=== PATIENT | female | born 1965 | race Caucasian/White ===

== ENCOUNTER 2022-04-13 21:55 | Emergency (ER) | payer SELFPAY ==
[2022-04-13] MEDS ORDERED: MORPHINE 4 MG/ML SYR ONE (22:30)
[2022-04-13] MEDS ORDERED: FAMOTIDINE 20 MG/2 ML VIAL IV ONE (22:30)
[2022-04-13] MEDS ORDERED: ONDANSETRON 4 MG/2 ML VIAL ONE (22:30)
[2022-04-13] MEDS ORDERED: NA CHLORIDE 0.9% 1,000 ML ONE (22:30)
[2022-04-13 23:08] LABS: Absolute Lymphocytes (CBC) 0.6 K/uL (0.7-4.9); Lymphocytes % 12.9 % (15.3-44.8); MCV 81.8 fL (80-100); MPV 9.4 fL (7.6-11.3); RBC Red Blood Cell Count 5.86 M/uL (3.86-4.86)
[2022-04-13 23:26] LABS: Albumin 3.4 g/dL (3.4-5.0); Bilirubin Total 0.9 mg/dL (0.2-1.0); Potassium 3.7 mmol/L (3.5-5.1); Protein, Total 6.8 g/dL (6.4-8.2)
[2022-04-14 00:25] LABS: Urine Blood Negative (Negative); Urine Glucose Negative (Negative); Urine Protein 1+ (Negative); Urine pH 7.5 (5.0-7.0)
[2022-04-14 00:39] LABS: Urine RBC <5 /HPF (None Seen)
--- NOTE | 2022-04-14 01:30 | ER ---
Nurse's Notes [facility] Name: Marycarmen Benz Age: 56 yrs Sex: Female : 1965 Arrival Date: 04/13/2022 Time: 22:03 Bed 6 Private MD: Diagnosis: Abdominal pain, Generalized;Nausea with vomiting, unspecified;Essential (primary) hypertension Presentation: 04/13 22:35 Chief complaint: Patient states: "Abdominal pain, headaches, fatigue.". Coronavirus tw5 screen: Vaccine status: Patient reports receiving the 1st dose of the Covid vaccine. Moderna. Ebola Screen: Patient negative for fever greater than or equal to 101.5 degrees Fahrenheit, and additional compatible Ebola Virus Disease symptoms Patient denies exposure to infectious person. Patient denies travel to an Ebola-affected area in the 21 days before illness onset. Initial Sepsis Screen: Does the patient meet any 2 criteria? No. Patient's initial sepsis screen is negative. Does the patient have a suspected source of infection? No. Patient's initial sepsis screen is negative. Risk Assessment: Do you want to hurt yourself or someone else? Patient reports no desire to harm self or others. Onset of symptoms was April 12, 2022 at 12:00. 22:35 Method Of Arrival: Ambulatory tw5 22:35 Acuity: LILY 3 tw5 Triage Assessment: 22:37 General: Appears uncomfortable, Behavior is appropriate for age, agitated. Pain: Pain tw5 currently is 8 out of 10 on a pain scale. GI: Reports lower abdominal pain, upper abdominal pain. Historical: - Allergies: 22:37 No Known Allergies; tw5 - Home Meds: 22:37 tramadol 50 mg Oral tab 1 tab every 4 hours [Active]; tw5 - PMHx: 22:37 Hypertensive disorder; Diabetes mellitus; PCOS; Hypothyroidism; tw5 - PSHx: 22:37 section; foot surgery-right; Total abdominal hysterectomy; Lumpectomy of tw5 breast; - Immunization history:: Flu vaccine is not up to date. Patient has never been vaccinated. - Social history:: Smoking status: Patient denies any tobacco usage or history of. Screenin:39 Abuse screen: Denies threats or abuse. Denies injuries from another. Nutritional tw5 screening: No deficits noted. Tuberculosis screening: No symptoms or risk factors identified. Fall Risk None identified. Assessment: 22:39 General: Appears uncomfortable, Behavior is appropriate for age, agitated. Neuro: No tw5 deficits noted. GI: Abdomen is tender to palpation X 4 quads. 04/14 00:00 Reassessment: Patient appears in no apparent distress at this time. Patient and/or jb4 family updated on plan of care and expected duration. Pain level reassessed. Patient is alert, oriented x 3, equal unlabored respirations, skin warm/dry/pink. Patient states feeling better. Patient states symptoms have improved. 01:00 Reassessment: Patient appears in no apparent distress at this time. Patient and/or jb4 family updated on plan of care and expected duration. Pain level reassessed. Patient is alert, oriented x 3, equal unlabored respirations, skin warm/dry/pink. 01:45 Reassessment: Patient appears in no apparent distress at this time. Patient and/or jb4 family updated on plan of care and expected duration. Pain level reassessed. Patient is alert, oriented x 3, equal unlabored respirations, skin warm/dry/pink. Vital Signs: 04/13 22:35 BP 150 / 56; Pulse 95; Resp 18; Temp 98.5; Pulse Ox 100% on R/A; Weight 90.72 kg; tw5 Height 5 ft. 9 in. (175.26 cm); Pain 8/10; 04/14 00:00 BP 152 / 58; Pulse 86; Resp 16; Pulse Ox 100% on R/A; jb4 04/13 22:35 Body Mass Index 29.53 (90.72 kg, 175.26 cm) tw5 ED Course: 04/13 22:03 Patient arrived in ED. ag3 22:05 [facility]. kb 22:05 Jose Coronel DO is Attending Physician. kb 22:29 Jumana Limon is Primary Nurse. tw5 22:37 Triage completed. tw5 22:37 Arm band placed on. tw5 22:39 Placed in gown. Bed in low position. Call light in reach. Side rails up X 1. Pulse ox tw5 on. NIBP on. Door closed. Noise minimized. Lights dimmed. Warm blanket given. Verbal reassurance given. 22:39 Initial lab(s) drawn, by me, sent to lab. Inserted saline lock: 18 gauge in right tw5 antecubital area, using aseptic technique. Blood collected. Started by Henok ANDERSON. 22:40 CBC with Diff Sent. :40 CMP Sent. tw11 17:40 Lipase Sent. tw5 04/14 00:13 CT Abd/Pelvis - IV Contrast Only In Process Unspecified. EDMS 01:30 No provider procedures requiring assistance completed. IV discontinued, intact, jb4 bleeding controlled, No redness/swelling at site. Pressure dressing applied. Administered Medications: 04/13 22:40 Drug: Zofran (Ondansetron) 4 mg Route: IVP; Site: right antecubital; tw5 23:10 Follow up: Response: No adverse reaction; Marked relief of symptoms; Nausea is decreasedjb4 22:41 Drug: NS 0.9% 1000 ml Route: IV; Rate: 1 bolus; Site: right antecubital; tw5 04/14 00:00 Follow up: Response: No adverse reaction; IV Status: Completed infusion; IV Intake: jb4 1000ml 04/13 22:41 Drug: Pepcid (famotidine) 20 mg Route: IVP; Site: right antecubital; tw5 23:10 Follow up: Response: No adverse reaction; Marked relief of symptoms jb4 22:41 Drug: morphine 4 mg Route: IVP; Infused Over: 4 mins; Site: right antecubital; tw5 23:15 Follow up: Response: No adverse reaction; Marked relief of symptoms; Pain is decreased; jb4 RASS: Alert and Calm (0) Medication: 22:39 VIS not applicable for this client. tw5 Intake: 04/14 00:00 IV: 1000ml; Total: 1000ml. jb4 Outcome: 01:29 Discharge ordered by . ms3 01:45 Discharged to home ambulatory, with family. jb4 01:45 Condition: stable 01:45 Discharge instructions given to patient, Instructed on discharge instructions, follow up and referral plans. medication usage, Demonstrated understanding of instructions, follow-up care, medications, Prescriptions given X 1. 02:14 Patient left the ED. bb Signatures: Dispatcher [employer] EDMO Cherry Rivera, URVASHI NEWTON-Natalie Bennett RN RN bb Taurus Larson RN RN jb4 Samra Santos3 Jose Coronel, DO ms3 Kyler Limonfany tw5 Corrections: (The following items were deleted from the chart) 02:20 02:00 Reassessment: Patient appears in no apparent distress at this time. Patient jb4 and/or family updated on plan of care and expected duration. Pain level reassessed. Patient is alert, oriented x 3, equal unlabored respirations, skin warm/dry/pink. jb4
--- NOTE | 2022-04-14 01:30 | EDPHYS ---
Physician Documentation [facility] Name: Marycarmen Benz Age: 56 yrs Sex: Female : 1965 Arrival Date: 04/13/2022 Time: 22:03 Bed 6 Private MD: ED Physician Jose Coronel HPI: 04/13 22:25 This 56 yrs old Female presents to ER via Unassigned with complaints of Abdominal Pain. ms3 22:25 56-year-old female with past medical history of diabetes, hypertension, hypothyroidism, ms3 PCOS, fibromyalgia presents for abdominal pain that began yesterday. Patient describes the pain is generalized, rated an 8/10, and described as cramping. Patient denies alleviating or inciting factors. Patient endorses chills, fatigue, nausea, vomiting. Patient denies fevers or diarrhea. Patient denies sick contacts.. Historical: - Allergies: 22:37 No Known Allergies; tw5 - Home Meds: 22:37 tramadol 50 mg Oral tab 1 tab every 4 hours [Active]; tw5 - PMHx: 22:37 Hypertensive disorder; Diabetes mellitus; PCOS; Hypothyroidism; tw5 - PSHx: 22:37 section; foot surgery-right; Total abdominal hysterectomy; Lumpectomy of tw5 breast; - Immunization history:: Flu vaccine is not up to date. Patient has never been vaccinated. - Social history:: Smoking status: Patient denies any tobacco usage or history of. ROS: 22:25 Neck: Negative for injury, pain, and swelling, Cardiovascular: Negative for chest pain, ms3 and palpitations. Respiratory: Negative for shortness of breath, cough, wheezing, and pleuritic chest pain. 22:25 Skin: Negative for injury, rash, and discoloration. 22:25 Constitutional: Positive for chills, Negative for fever. 22:25 Abdomen/GI: Positive for abdominal pain, nausea and vomiting, Negative for diarrhea. 22:25 All other systems are negative. Exam: 22:25 Constitutional: This is a well developed, well nourished patient who is awake, alert, ms3 and in no acute distress. Head/Face: Normocephalic, atraumatic. Neck: Trachea midline, no cervical lymphadenopathy. Supple, full range of motion without nuchal rigidity, or vertebral point tenderness. No Meningismus. Chest/axilla: Normal chest wall appearance and motion. Nontender with no deformity. Cardiovascular: Regular rate and rhythm with a normal S1 and S2. No gallops, murmurs, or rubs. Normal PMI, no JVD. No pulse deficits. Respiratory: Lungs have equal breath sounds bilaterally, clear to auscultation and percussion. No rales, rhonchi or wheezes noted. No increased work of breathing, no retractions or nasal flaring. 22:25 Back: No spinal tenderness. No costovertebral tenderness. Full range of motion. Skin: Warm, dry with normal turgor. Normal color with no rashes, no lesions, and no evidence of cellulitis. MS/ Extremity: Pulses equal, no cyanosis. Neurovascular intact. Full, normal range of motion. 22:25 Abdomen/GI: Inspection: abdomen appears normal, Bowel sounds: normal, Palpation: moderate abdominal tenderness, in all quadrants. Vital Signs: 22:35 BP 150 / 56; Pulse 95; Resp 18; Temp 98.5; Pulse Ox 100% on R/A; Weight 90.72 kg; tw5 Height 5 ft. 9 in. (175.26 cm); Pain 8/10; 04/14 00:00 BP 152 / 58; Pulse 86; Resp 16; Pulse Ox 100% on R/A; jb4 04/13 22:35 Body Mass Index 29.53 (90.72 kg, 175.26 cm) tw5 MDM: 04/13 22:06 Patient medically screened. kb 22:25 Differential diagnosis: bowel obstruction, non-specific abd pain, pancreatitis. ms3 04/14 01:31 Data reviewed: vital signs, nurses notes, lab test result(s), radiologic studies, and ms3 as a result, I will discharge patient. Counseling: I had a detailed discussion with the patient and/or guardian regarding: the historical points, exam findings, and any diagnostic results supporting the discharge/admit diagnosis, lab results, radiology results, the need for outpatient follow up, to return to the emergency department if symptoms worsen or persist or if there are any questions or concerns that arise at home. Special discussion: Based on the patient's Hx, exam, and Dx evaluation, there is no indication for emergent surgery or inpatient Tx. It is understood by the patient/guardian that if the Sx's persist or worsen they need to return immediately for re-evaluation. ED course: Discussed labs, imaging, physical exam findings with patient and her . Patient has improved since arrival to the emergency department. Patient is alert and oriented x4, in no apparent distress, nontoxic-appearing, ambulatory in the emergency department, speaking full sentences. Return precautions discussed include worsening symptoms, or any other concerns. All patient's questions were answered in the emergency department. 04/13 22:25 Order name: CBC with Diff; Complete Time: 00:11 ms3 04/13 22:25 Order name: CMP; Complete Time: 00:11 ms3 04/13 22:25 Order name: Lipase; Complete Time: 00:11 ms3 04/13 22:25 Order name: Urine Microscopic Only; Complete Time: 01:01 ms3 04/13 22:25 Order name: CT Abd/Pelvis - IV Contrast Only ms3 04/14 00:26 Order name: Urine Dipstick-Ancillary; Complete Time: 00:28 EDMS 04/13 22:25 Order name: IV Saline Lock; Complete Time: 22:40 ms3 04/13 22:25 Order name: Labs collected and sent; Complete Time: 22:40 ms3 04/13 22:25 Order name: Urine Dipstick-Ancillary (obtain specimen); Complete Time: 00:34 ms3 Administered Medications: 04/13 22:40 Drug: Zofran (Ondansetron) 4 mg Route: IVP; Site: right antecubital; tw5 23:10 Follow up: Response: No adverse reaction; Marked relief of symptoms; Nausea is decreasedjb4 22:41 Drug: NS 0.9% 1000 ml Route: IV; Rate: 1 bolus; Site: right antecubital; tw5 04/14 00:00 Follow up: Response: No adverse reaction; IV Status: Completed infusion; IV Intake: jb4 1000ml 04/13 22:41 Drug: Pepcid (famotidine) 20 mg Route: IVP; Site: right antecubital; tw5 23:10 Follow up: Response: No adverse reaction; Marked relief of symptoms jb4 22:41 Drug: morphine 4 mg Route: IVP; Infused Over: 4 mins; Site: right antecubital; tw5 23:15 Follow up: Response: No adverse reaction; Marked relief of symptoms; Pain is decreased; jb4 RASS: Alert and Calm (0) Disposition Summary: 04/14/22 01:29 Discharge Ordered Location: Home ms3 Condition: Stable ms3 Diagnosis - Abdominal pain, Generalized ms3 - Nausea with vomiting, unspecified ms3 - Essential (primary) hypertension ms3 Followup: ms3 - With: Private Physician - When: 2 - 3 days - Reason: Discharge Instructions: - Discharge Summary Sheet ms3 - Abdominal Pain, Adult ms3 - Hypertension, Adult ms3 - Nausea and Vomiting, Adult ms3 Forms: - Medication Reconciliation Form ms3 - Thank You Letter ms3 - Antibiotic Education ms3 - Prescription Opioid Use ms3 Prescriptions: - ondansetron 4 mg Oral tablet,disintegrating - take 1 tablet by ORAL route every 8 hours for 1 day; 15 tablet; Refills: 0, ms3 Product Selection Permitted Signatures: Dispatcher [employer] EDCherry Kirk, URVASHI W[employer] DESIGN ENGINEER-Jose Mott DO DO ms3 Jumana Limon tw5 Taurus Larson RN jb4
[2022-04-14 02:21] VITALS: TEMP 98.5; O2SAT 100
[2022-04-14 02:22] VITALS: BP 152/58
--- NOTE | 2022-04-14 11:54 | RAD REPORT ---
EXAM DESCRIPTION: CT - Abdomen Pelvis W Contrast - 04/14/2022 12:07 am CLINICAL HISTORY: Abd pain. COMPARISON: None. TECHNIQUE: CT of the abdomen and pelvis was performed following intravenous administration of iodina carmen contrast. Arterial phase images of the abdomen, and portal venous phase images through the abdome n and pelvis were obtained. Oral contrast was not administered. Axial, coronal, and sagittal soft tis baljeet window reconstructions were created and sent to PACS. This exam was performed according to our departmental dose-optimization program, which includes autom ated exposure control, adjustment of the mA and/or kV according to patient size and/or use of iterati ve reconstruction technique. FINDINGS: Thoracic: No significant abnormality. Hepatobiliary: No concerning hepatic lesion identified. The portal veins are patent. The gallbladder is unremarkable. No biliary ductal dilatation. Pancreas: Unremarkable. Spleen: Unremarkable. Gastrointestinal: No evidence of bowel obstruction or perienteric inflammation. The appendix is ariadne l. Small to moderate amount of fecal material throughout the colon. Adrenals: No abnormality identified in either adrenal gland. Renal: No concerning parenchymal abnormality in either kidney. No hydronephrosis or urolithiasis. Bladder/Reproductive: Unremarkable appearance of the urinary bladder by CT technique. Left ovarian si mple-appearing 6.2 cm cyst Vascular/Lymphatics: Mildly prominent mesenteric lymph nodes. Abdominal aorta is normal in caliber. Musculoskeletal: No concerning osseous lesion identified. Small fat-containing periumbilical hernia w ith no associated inflammatory changes. Fluid / peritoneum: No significant free fluid. No free intraperitoneal air identified. IMPRESSION 1. Mildly prominent mesenteric lymph nodes, a nonspecific finding. Correlate for potent ial mesenteritis. 2. No additional potential acute abnormality identified in the abdomen or pelvis by CT. 3. Small fat-containing periumbilical hernia with no associated inflammatory changes. 4. Simple appearing left ovarian 6.2 cm cyst. Recommend follow-up pelvic ultrasound in 6-12 months (Reference: JACR 2019;17(2):[id number]). Electronically signed by: Ny Saha MD 04/14/2022 1:00 AM CDT Due to temporary technical issues with the PACS/Fluency reporting system, reports are being signed by the in house radiologists without review as a courtesy to insure prompt reporting. The interpreting radiologist is fully responsible for the content of the report.
== END 2022-04-14 02:14 | disposition home or self-care (01) ==
LOC: ER 21:55
DX: R10.9 Unspecified abdominal pain (principal); R11.2 Nausea with vomiting, unspecified; I10 Essential (primary) hypertension; E03.9 Hypothyroidism, unspecified; M79.7 Fibromyalgia; E28.2 Polycystic ovarian syndrome
CPT/HCPCS: 36415; 74177; 80053; 81003; 81015; 83690; 85025; 96361; 96374; 96375; 99284; J2405; J7030; Q9967

== ENCOUNTER 2022-05-05 07:00 | Day surgery (SDC) | payer BC ==
[2022-05-05] MEDS ORDERED: Ringers Lactate 1,000 ML IV ONE (07:18)
[2022-05-05] MEDS ORDERED: GLYCOPYRROLATE 0.2 MG/ML SYR ONE (08:09)
[2022-05-05] MEDS ORDERED: propofoL 200 MG/20 ML VIAL IV ONE ×2 (08:09)
[2022-05-05] MEDS ORDERED: LIDOCAINE 1% MPF 10 ML AMPULE ONE ×2 (08:09→08:24)
[2022-05-05 09:26] VITALS: TEMP 97.4
[2022-05-05 10:29] VITALS: BP 125/97; O2SAT 100
--- NOTE | 2022-05-05 22:26 | OP ---
Date of Procedure: 05/05/2022 Surgeon: Waqas Stoner MD This colonoscopy was done, but today the hospital mentioned that the system used has not been able to put the report at the same time, and they asked me to dictate this op report and this is the reason why we are dictating this op report. The pictures are in the computer itself, we cannot bring the pi ctures either. During the procedure, the scope used and the instruments were properly working with n o uneventful findings. This is just a software issue to be able to put in this report. Preoperative Diagnosis: Screening colonoscopy. Postoperative Diagnoses: Screening colonoscopy, polyposis coli, diverticulum, and internal and exter nal hemorrhoids. Procedure: Colonoscopy with polypectomy and biopsy. Anesthesia: Sedation MAC. Complications: None. Indication: This is a case of a 56-year-old patient due for colonoscopy. She also has an umbilical hernia that will be done in the next several weeks. She needed a colonoscopy to be done first for wh ich the benefits, alternatives, and risks of colonoscopy were fully explained, which included, but we re not limited to infection, bleeding, damage to adjacent structures, anesthesia complication, bowel perforation, AR, and even . She also understands this may not relieve her symptoms. She may ne ed more than one surgical intervention. She also needed a bowel prep that was explained to her in de tail. Procedure In Detail: The patient was brought to the operating room and placed in supine position. A time-out was called. The patient was placed in lateral decubitus position with proper protection. Rectal examination was done showing small external hemorrhoids. After that, we proceeded to place th e colonoscope in the center of the anus and advanced into the rectum and to the rest of the colon und er direct visualization. After insufflation without resistance, we were able to make all the way pancho n to the cecum identified by the ileocecal valve and appendiceal orifice. On that area, we found at about 25 cm, we had a polyp, which was about 1 cm in size. It seems to be pedunculated so we removed that polyp and the way we did that is just basically we used a biopsy forceps. We put the loops mckenna und the neck of that polyp and then under cauterization, we proceeded to remove the polyp. The polyp was completely excised and completely extracted and sent to the pathologist. The other findings nicole t we have is that on the area of the descending colon, we noticed diverticulum more pronounced in nicole t area, although we also found diverticulum in the transverse and ascending colon. We also have the patient with internal and external hemorrhoids. Once we did the biopsy, we took a look at the area. No evidence of perforation. No bleeding. At that moment, we retroverted the scope and looked into the rectal region and we noted the hemorrhoids, but no bleeding. At that moment, I proceeded to deshawn ve the scope. The patient tolerated the procedure well and the patient sent to recovery in stable co ndition. NORMA/SWAPNIL Voice ID: [id number] Report ID: [id number]
--- NOTE | 2022-05-05 22:29 | DS ---
Date of Discharge: 05/05/2022 Diagnoses: Polyposis coli, diverticulum, and internal and external hemorrhoids. Procedure: Colonoscopy with polypectomy. Disposition: Home. Activity: As tolerated. No heavy lifting. Followup: In my office in 1 week. She has a scheduled surgery for next week, we should not do it unt il the biopsy report is finalized. JOSE Voice ID: [id number] Report ID: [id number]
== END 2022-05-05 09:59 | disposition home or self-care (01) ==
LOC: OR 07:00
PROVIDERS: ATTEND Surgery
PROC: 0DBL8ZX Excision of Transverse Colon, Via Natural or Artificial Opening Endoscopic, Diagnostic (ICD-10-PCS; principal; 2022-05-05 08:30)
DX: D12.4 Benign neoplasm of descending colon (principal); R10.9 Unspecified abdominal pain; R19.4 Change in bowel habit; R59.0 Localized enlarged lymph nodes; I10 Essential (primary) hypertension; E11.9 Type 2 diabetes mellitus without complications; K42.9 Umbilical hernia without obstruction or gangrene
CPT/HCPCS: 88305; J2704; J7120

== ENCOUNTER 2022-05-12 12:33 | Day surgery (SDC) | payer BC ==
[2022-05-12] MEDS ORDERED: Ringers Lactate 0 ML IV ONE (13:02)
[2022-05-12] MEDS ORDERED: CEFAZOLIN SODIUM 1 GM/VIAL ONE (13:02)
[2022-05-12 13:03] LABS: Absolute Lymphocytes (CBC) 2.4 K/uL (0.7-4.9); Hematocrit 43.7 % (36.0-45.0); Lymphocytes % 37.6 % (15.3-44.8); MCV 84.6 fL (80-100); MPV 9.1 fL (7.6-11.3); RBC Red Blood Cell Count 5.16 M/uL (3.86-4.86)
--- NOTE | 2022-05-12 13:04 | RAD REPORT ---
EXAM DESCRIPTION: RAD - Chest Pa And Lat (2 Views) - 05/12/2022 12:59 pm CLINICAL HISTORY: PRE-OP Chest pain. COMPARISON: No comparisons FINDINGS: The lungs are clear. The heart is upper limit of normal in size. No displaced fractures. IMPRESSION: No acute or concerning finding suspected.
[2022-05-12] MEDS ORDERED: NA CHLORIDE 0.9% 1,000 ML ONE (13:07)
[2022-05-12 13:17] LABS: Potassium 3.8 mmol/L (3.5-5.1)
[2022-05-12] MEDS ORDERED: MIDAZOLAM HCL 2 MG/2 ML INJ ONE (13:42)
[2022-05-12] MEDS ORDERED: FENTANYL CITR 100 MCG/2 ML ONE (13:42)
[2022-05-12] MEDS ORDERED: propofoL 200 MG/20 ML VIAL IV ONE (13:42)
[2022-05-12] MEDS ORDERED: ONDANSETRON 4 MG/2 ML VIAL ONE ×2 (13:43→15:18)
[2022-05-12] MEDS ORDERED: LIDOCAINE 2% MPF 5 ML VIAL ONE (13:43)
[2022-05-12] MEDS ORDERED: ROCURONIUM 50 MG/5 ML VIAL IV ONE (13:44)
[2022-05-12] MEDS ORDERED: dexAMETHasone 4 MG/ML VIAL ONE (14:14)
--- NOTE | 2022-05-12 14:49 | P.BOP ---
Preoperative diagnosis: incarcerated tender ventral (supraumbilical hernia), mesenteric adenopathy Postoperative diagnosis: same left ovarian cystic mass Primary procedure: Laparoscopic repair of incarcerated tender ventral with mesh Director Of Epidemiology: Marta Bueno) Estimated blood loss: <10cc Specimen: sac Findings: incarcerated omentum Anesthesia: General Complications: None Transferred to: Recovery Room Condition: Good
[2022-05-12] MEDS ORDERED: NEOSTIGMINE 1 MG/ML -10 ML VIAL ONE (14:53)
[2022-05-12] MEDS ORDERED: GLYCOPYRROLATE 0.2 MG/ML SYR ONE (14:53)
[2022-05-12] MEDS: HYDROMORPHONE HCL 1 MG/ML INJ ONE ×4 (15:17→15:37)
[2022-05-12 16:17] VITALS: TEMP 97
[2022-05-12] MEDS ORDERED: HYDROCODONE/APAP 10/325 TAB ONE (16:44)
[2022-05-12 17:03] VITALS: BP 126/67; O2SAT 96
--- NOTE | 2022-05-13 05:33 | OP ---
Date of Procedure: 05/12/2022 Surgeon: Waqas Stoner MD Wardrobe Image Consultant: JARED Velez. Preoperative Diagnosis: Incarcerated tender ventral hernia and mesenteric adenopathy. Postoperative Diagnosis: Incarcerated tender ventral hernia and mesenteric adenopathy plus left ovar raimundo cystic mass. Procedure: Laparoscopic repair of incarcerated tender ventral hernia with mesh. Estimated Blood Loss: Less than 10 cc. Specimen: Hernia sac. Findings: Incarcerated omentum and hernia sac. Also we have a cystic lesion in the left adnexal are a. 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 The cystic mass is soft, next to where supposed to be her left ovary. It is not attached to the intestines. Complications: None. Anesthesia: General plus local. Indications: This is a case of a 56-year-old patient, who comes to us with the incarcerated supraumb ilical ventral hernia. The benefits, alternatives, and risks of repair with mesh, laparoscopic versu s open, were discussed with the patient and explained and the benefits, alternatives, and risks inclu de, but not limited to infection, bleeding, damage to adjacent structures, anesthesia complication, r ecurrence, VT, and . She also understands this may not relieve her symptoms. She might need mo re than one surgical intervention. She signed a consent. She also was advised the pros and cons of mesh use. After explaining to her all the pros and cons, all their questions were answered to their satisfaction. She understands also the importance of losing weight. Procedure In Detail: She was brought to the operating room and placed in supine position. Anesthesi a was done without complication. Abdominal area was prepped and draped in sterile fashion. Marcaine 0.5% was injected for local anesthetic followed by sharp incision of the skin in the ventral region where the bulge was present. Incision was carried down until we find a hernia sac. We opened the he rnia sac and noticed incarcerated omentum. There was some omental adhesions to that area that were c arefully removed, at least enough to allow me to introduce Farhad trocar there. This allowed me to p ut a 5 mm trocar in left and right side. I once again addressed the issue of the ventral area. Most of the omentum was released fully inspecting making sure there was no bleeding. Then, we had the fa scia edges delineated. We cleaned the fascia edges. We noticed that in order for this to close prop erly, we might have to use mesh in that region due to the quality of the fascia. We selected a mediu m Ventralex mesh for that purpose. Before that I have to mention that on the CAT scan, there is some questionable lymphadenopathy in the mesentery, so we proceeded to inspect the ascending, transverse and descending colon. We see some what looked like diverticulum from this side, but no masses seen. In the area of the mesentery, we did not see any masses. In the area of the pelvis, we did not see any masses except on the left acneform region. There is at least 4-5 cm cystic mass coming from the left ovarian area. Several pictures were taken. It is not attached to intestines, it is smooth, has some fluctuance inside. It is not translucent. No bleeding associated with it. At that moment, I proceeded then to inspect the small bowel with no masses seen. Once again, mesenteric area with no m asses seen. Liver with no masses seen. Stomach, soft and compressible. At that moment, I proceeded then to addressed the issue of the hernia, fascial edges were cleaned. We placed Vicryl #1 inside t he fascia in antegrade fashion multiple times. Before we removed a Farhad trocar, we proceeded to dr op a Ventralex mesh and pulled it through the trocar site, removed the trocar, hold the straps until we fixated the mesh with SorbaFix fixation device. Then, after that, we trimmed the mesh straps and then we further secured this mesh to the anterior abdominal wall to prevent any intestines to come in between. Once we had the mesh fixated and the defect closed, we inspected the area once again, no b leeding. At that moment, I proceeded to remove the trocars under direct vision. Deflated pneumoperi toneum. Closed the subcutaneous tissue with 3-0 chromic and the skin subcuticular closure with 3-0 chromic. Steri-Strips placed in and the patient tolerated the procedure well. The patient was sent to Recovery in stable condition. NORMA/SWAPNIL Voice ID: [id number] Report ID: [id number]
--- NOTE | 2022-05-13 05:39 | DS ---
Diagnosis: Incarcerated tender ventral hernia and left ovarian cystic mass and mesenteric adenopathy . Procedure: Laparoscopic repair of incarcerated ventral hernia with mesh. Disposition: Home. Activity: As tolerated, no heavy lifting. Follow Up: In my office in 1 week. Call for appointment at [phone]. Discharge Instructions: Keep area dry for 48 hours, then may shower. Abdominal binder while she is out of bed. NORMA/SWAPNIL Voice ID: [id number] Report ID: [id number]
--- NOTE | 2022-05-13 08:23 | EKG ---
Test Date: 2022-05-12 Test Time: 13:47:27 Strip Presser: SHWETA MEASUREMENT RESULTS: Intervals: Rate: 74 MI: 142 QRSD: 100 QT: 374 QTc: 415 Raymond: P: 11 MI: 142 QRS: 38 T: 44 INTERPRETIVE STATEMENTS: Normal sinus rhythm Inferior infarct, age undetermined Possible Anterior infarct, age undetermined Abnormal ECG No previous ECG available for comparison Electronically Signed On 05-13-22 08:19:58 RECRUITMENT CONSULTANT by Dann Cutler
== END 2022-05-12 17:39 | disposition home or self-care (01) ==
LOC: OR 12:33
PROVIDERS: ATTEND Surgery
PROC: 0WUF4JZ Supplement Abdominal Wall with Synthetic Substitute, Percutaneous Endoscopic Approach (ICD-10-PCS; principal; 2022-05-12 13:30)
DX: K43.7 Other and unspecified ventral hernia with gangrene (principal); R59.0 Localized enlarged lymph nodes; I10 Essential (primary) hypertension; E11.9 Type 2 diabetes mellitus without complications; F90.9 Attention-deficit hyperactivity disorder, unspecified type
CPT/HCPCS: 93005; 85025; 80048; 36415; 88302; 71046; 49653; J2704; J1100; J2710; J2001; J2250; J3010; J1170 ×2; J7030; J2405 ×2; J0690; J7120

== ENCOUNTER 2022-11-13 08:58 | Emergency (ER) | payer BC ==
[2022-11-13] MEDS ORDERED: KETOROLAC 30 MG/ML INJ ONE (09:15)
[2022-11-13] MEDS ORDERED: METHYLPREDNISOLONE 125 MG INJ ONE (09:15)
--- NOTE | 2022-11-13 09:55 | RAD REPORT ---
EXAM DESCRIPTION: RAD - Shoulder Left 2 View - 11/13/2022 9:46 am CLINICAL HISTORY: Left shoulder pain FINDINGS: No fracture or dislocation is seen. Narrowing of AC joint.
--- NOTE | 2022-11-13 10:14 | ER ---
Nurse's Notes [facility] Name: Marycarmen Benz Age: 57 yrs Sex: Female : 1965 Arrival Date: 11/13/2022 Time: 08:58 Bed 12 Private MD: Osman Siu Diagnosis: Pain in left shoulder Presentation: 11/13 09:02 Chief complaint: Patient states: L shoulder pain for 2 days, worse today. Ebola Screen: ll1 Patient denies travel to an Ebola-affected area in the 21 days before illness onset. Initial Sepsis Screen: Does the patient meet any 2 criteria? No. Patient's initial sepsis screen is negative. Does the patient have a suspected source of infection? No. Patient's initial sepsis screen is negative. Risk Assessment: Do you want to hurt yourself or someone else? Patient reports no desire to harm self or others. Onset of symptoms was November 11, 2022. 09:02 Method Of Arrival: Ambulatory ll1 09:02 Acuity: LILY 4 ll1 10:24 Coronavirus screen: Vaccine status: Patient reports receiving the 2nd dose of the covid kc6 vaccine. Client denies travel out of the [place] in the last 14 days. At this time, the client does not indicate any symptoms associated with coronavirus-19. Triage Assessment: 09:03 General: Appears uncomfortable, Behavior is calm, cooperative, appropriate for age. ll1 Pain: Complains of pain in L shoulder Quality of pain is described as aching. Musculoskeletal: Circulation, motion, and sensation intact. Capillary refill < 3 seconds. Historical: - Allergies: 09:02 malathion; ll1 - PMHx: 09:02 PCOS; Hypothyroidism; Hypertensive disorder; diabetes mellitus; RA; MVP; ll1 - PSHx: 09:02 section; foot surgery-right; Lumpectomy of breast; Total abdominal ll1 hysterectomy; - Immunization history:: Adult Immunizations up to date. - Social history:: Smoking status: Patient denies any tobacco usage or history of. Screenin:19 [facility] ED Fall Risk Assessment (Adult) Score/Fall Risk Level 0 - 2 = Low Risk ll1 Oriented to surroundings, Maintained a safe environment, Educated pt \T\ family on fall prevention, incl call for assistance when getting out of bed, Hourly rounding (assess needs \T\ fall precautionary measures) done. Abuse screen: Denies threats or abuse. Nutritional screening: No deficits noted. Tuberculosis screening: No symptoms or risk factors identified. Assessment: 09:18 Reassessment: No changes from previously documented assessment. Patient and/or family ll1 updated on plan of care and expected duration. Pain level reassessed. Patient is alert, oriented x 3, equal unlabored respirations, skin warm/dry/pink. X ray at . 10:24 Reassessment: No changes from previously documented assessment. Patient and/or family kc6 updated on plan of care and expected duration. Pain level reassessed. Patient is alert, oriented x 3, equal unlabored respirations, skin warm/dry/pink. Vital Signs: 09:05 BP 137 / 75; Pulse 80; Resp 16; Temp 97.8; Pulse Ox 98% ; Weight 86.18 kg; Height 5 ft. ll1 9 in. ; Pain 6/10; 10:23 BP 135 / 80; Pulse 74; Resp 16; Pulse Ox 100% ; Pain 4/10; kc6 09:05 Body Mass Index 28.06 (86.18 kg, 175.26 cm) ll1 09:05 Pain Scale: Adult ll1 10:23 Pain Scale: Adult kc6 ED Course: 09:00 Patient arrived in ED. mr 09:00 Cherry Rivera F[facility]C [facility] kb 09:00 Alan Montenegro MD is Attending Physician. kb 09:00 Osman Siu is Private Physician. mr 09:02 Triage completed. ll1 09:04 Arm band placed on Patient placed in an exam room, on a stretcher. ll1 09:16 Jacey Veliz, JUSTIN is Primary Nurse. ll1 09:19 Patient has correct armband on for positive identification. Bed in low position. Call ll1 light in reach. Cardiac monitoring not applicable on this patient. 09:19 No provider procedures requiring assistance completed. Patient did not have IV access ll1 during this emergency room visit. 09:48 Shoulder Left (2 View) XRAY In Process Unspecified. EDMS Administered Medications: 09:16 Drug: Ketorolac IM 30 mg Route: IM; Site: left gluteus; ll1 10:24 Follow up: Response: No adverse reaction; Pain is decreased; RASS: Alert and Calm (0) kc6 09:17 Drug: MethylPREDNISolone Sodium Succinate IM 125 mg Route: IM; Site: right gluteus; ll1 10:24 Follow up: Response: No adverse reaction kc6 Medication: 09:19 VIS not applicable for this client. ll1 Outcome: 10:13 Discharge ordered by . kb 10:24 Discharged to home ambulatory. kc6 10:24 Condition: stable 10:24 Discharge instructions given to patient, Instructed on discharge instructions, follow up and referral plans. no drinking with medication, no driving heavy equipment, medication usage, Demonstrated understanding of instructions, follow-up care, medications, Prescriptions given X 2. 10:24 Patient left the ED. kc6 Signatures: Dispatcher [employer] EDMS Cherry Rivera, URVASHI ALLANP-Татьяна Ward mr Jacey Veliz, RN RN ll1 Mary Haq RN RN kc6
--- NOTE | 2022-11-13 10:14 | EDPHYS ---
Physician Documentation [facility] Name: Marycarmen Benz Age: 57 yrs Sex: Female : 1965 Arrival Date: 11/13/2022 Time: 08:58 Bed 12 Private MD: Osman Siu ED Physician Alan Montenegro HPI: 11/13 11:04 This 57 yrs old Female presents to ER via Ambulatory with complaints of Shoulder Pain. kb 11:04 The patient or guardian complains of decreased range of motion, pain, tenderness. left kb shoulder. Context: The problem was sustained at home, resulted from an unknown reason, The patient experiences decreased range of motion, The patient reports no obvious deformity. Onset: The symptoms/episode began/occurred 2 day(s) ago, and became worse this morning. Modifying factors: the symptoms are alleviated by nothing. The symptoms are aggravated by movement. Associated signs and symptoms: The patient has no apparent associated signs or symptoms. Severity of symptoms: At their worst the symptoms were moderate, in the emergency department the symptoms are unchanged. Treatment prior to arrival includes: no previous treatment. The patient has not experienced similar symptoms in the past. The patient has not recently seen a physician. Historical: - Allergies: 09:02 malathion; ll1 - PMHx: 09:02 PCOS; Hypothyroidism; Hypertensive disorder; diabetes mellitus; RA; MVP; ll1 - PSHx: 09:02 section; foot surgery-right; Lumpectomy of breast; Total abdominal ll1 hysterectomy; - Immunization history:: Adult Immunizations up to date. - Social history:: Smoking status: Patient denies any tobacco usage or history of. ROS: 11:03 Constitutional: Negative for fever, chills, and weight loss. kb 11:03 MS/extremity: Positive for decreased range of motion, pain, of the anterior aspect of left shoulder. 11:03 All other systems are negative. Exam: 11:03 Constitutional: This is a well developed, well nourished patient who is awake, alert, kb and in no acute distress. Head/Face: Normocephalic, atraumatic. ENT: Moist Mucous membranes Cardiovascular: Regular rate and rhythm with a normal S1 and S2. No gallops, murmurs, or rubs. No pulse deficits. Respiratory: Respirations even and unlabored. No increased work of breathing. Talking in full sentences Abdomen/GI: Soft, non-tender. No distention Skin: Warm, dry with normal turgor. Normal color. Neuro: Awake and alert, GCS 15, oriented to person, place, time, and situation. Moves all extremities. Normal gait. 11:03 Neck: External neck: tenderness, that is mild, of the left mid cervical area and left trapezius, C-spine: appears grossly normal. 11:03 Musculoskeletal/extremity: Extremities: grossly normal except: noted in the anterior aspect of left shoulder: decreased ROM, pain, tenderness, swelling, ROM: limited active range of motion due to pain, in the anterior aspect of left shoulder, Circulation is intact in all extremities. Sensation intact. Vital Signs: 09:05 BP 137 / 75; Pulse 80; Resp 16; Temp 97.8; Pulse Ox 98% ; Weight 86.18 kg; Height 5 ft. ll1 9 in. ; Pain 6/10; 10:23 BP 135 / 80; Pulse 74; Resp 16; Pulse Ox 100% ; Pain 4/10; kc6 09:05 Body Mass Index 28.06 (86.18 kg, 175.26 cm) ll1 09:05 Pain Scale: Adult ll1 10:23 Pain Scale: Adult kc6 MDM: 09:00 Patient medically screened. kb 11:02 Differential diagnosis: humeral head fracture, tendonitis, strain, cervical kb radiculopathy. Data reviewed: vital signs, nurses notes. Counseling: I had a detailed discussion with the patient and/or guardian regarding: the historical points, exam findings, and any diagnostic results supporting the discharge/admit diagnosis, radiology results, the need for outpatient follow up, a orthopedic surgeon, to return to the emergency department if symptoms worsen or persist or if there are any questions or concerns that arise at home. 11/13 09:05 Order name: Shoulder Left (2 View) XRAY; Complete Time: 10:06 kb Administered Medications: 09:16 Drug: Ketorolac IM 30 mg Route: IM; Site: left gluteus; ll1 10:24 Follow up: Response: No adverse reaction; Pain is decreased; RASS: Alert and Calm (0) kc6 09:17 Drug: MethylPREDNISolone Sodium Succinate IM 125 mg Route: IM; Site: right gluteus; ll1 10:24 Follow up: Response: No adverse reaction 6 Disposition: 11:22 Co-signature as Attending Physician, Alan Montenegro MD I reviewed the patient's care rt provided by the Advanced Practice Provider and agree with the diagnosis and treatment plan. Disposition Summary: 11/13/22 10:13 Discharge Ordered Location: Home kb Condition: Stable kb Diagnosis - Pain in left shoulder kb Followup: kb - With: Emergency Department - When: As needed - Reason: Worsening of condition Followup: kb - With: Private Physician - When: 2 - 3 days - Reason: Recheck today's complaints, Continuance of care, Re-evaluation by your physician Discharge Instructions: - Discharge Summary Sheet kb - Shoulder Pain, [id number] kb - Cervical Radiculopathy, [id number] kb Forms: - Medication Reconciliation Form kb - Thank You Letter kb - Antibiotic Education kb - Prescription Opioid Use kb Prescriptions: - Prednisone 20 mg Oral Tablet - take 1 tablet by ORAL route once daily for 5 days; 5 tablet; Refills: 0, kb Product Selection Permitted - orphenadrine citrate 100 mg Oral Tablet Sustained Release - take 1 tablet by ORAL route 2 times per day As needed; 20 tablet; Refills: 0, kb Product Selection Permitted Signatures: Dispatcher [employer] EDCherry Kirk, LAND CLEARER-C LAND CLEARER-Jacey Boateng, RN RN ll1 Alan Montenegro MD MD rt Mary Haq RN kc6
[2022-11-13 10:38] VITALS: TEMP 97.8
[2022-11-13 10:40] VITALS: BP 135/80; O2SAT 100
== END 2022-11-13 10:24 | disposition home or self-care (01) ==
LOC: ER 08:58
DX: M25.512 Pain in left shoulder (principal); I10 Essential (primary) hypertension; E11.9 Type 2 diabetes mellitus without complications; Z88.8 Allergy status to other drugs, medicaments and biological substances
CPT/HCPCS: 73030; 96372; 99284; J2930

== ENCOUNTER 2023-09-30 19:32 | Emergency (ER) | payer BC ==
[2023-09-30] MEDS ORDERED: ONDANSETRON 4 MG/2 ML VIAL ONE (19:51)
[2023-09-30] MEDS ORDERED: MORPHINE 4 MG/ML SYR ONE (19:51)
[2023-09-30] MEDS ORDERED: NA CHLORIDE 0.9% 1,000 ML ONE (19:52)
[2023-09-30 20:17] LABS: Absolute Eosinophils 0.1 K/uL (0-0.5); Absolute Lymphocytes (CBC) 1.9 K/uL (0.7-4.9); Absolute Monocytes 0.5 K/uL (0.1-1.3); Basophils % 0.4 % (0-1.3); Eosinophils % 2.2 % (0-4.4); Hemoglobin 13.8 g/dL (12.0-15.0); Lymphocytes % 29.1 % (15.3-44.8); MCH 27.9 pg (27.0-35.0); MCHC 33.6 g/dL (32.0-36.0); MCV 83.1 fL (80-100); Neutrophils % 61.3 % (41.7-73.7); Nucleated Red Blood Cells % 0.1 % (0-0); Platelets 191 thou/uL (152-406); RBC Red Blood Cell Count 4.94 M/uL (3.86-4.86); Red Cell Distribution Width 13.7 % (12.1-15.2)
[2023-09-30 20:35] LABS: Albumin 3.5 g/dL (3.4-5.0); Albumin/Globulin Ratio 1.1 (1.1-1.8); Anion Gap 6.7 mEq/L (5.0-15.0); Bilirubin Total 0.7 mg/dL (0.2-1.0); Globulin 3.2 g/dL (2.3-3.5); Potassium 3.7 mEq/L (3.5-5.1); Protein, Total 6.7 g/dL (6.4-8.2)
--- NOTE | 2023-09-30 21:45 | RAD REPORT ---
EXAM DESCRIPTION: CT - Abdomen Pelvis W Contrast - 09/30/2023 9:15 pm CLINICAL HISTORY: ABD PAIN COMPARISON: Abdomen Pelvis W Contrast dated 04/14/2022 TECHNIQUE: Thin cut axial CT imaging of the abdomen and pelvis was performed following intravenous a dministration of 95 mL Isovue 300. Multiplanar reformats were generated and reviewed. All CT scans are performed using dose optimization technique as appropriate and may include automated exposure control or mA/KV adjustment according to patient size. FINDINGS: No suspicious findings in the lung bases. The liver, spleen, adrenal glands, and pancreas show no suspicious findings. Gallbladder and biliary tree are also without suspicious finding. Symmetric renal function is seen with mild right hydroureter. 5-6 mm right mid ureteral calculus. 3 m m right lower pole renal nonobstructing calculus. No hydronephrosis or calculi on the left. No dilated bowel loops or bowel wall thickening. Mild colonic diverticulosis. No free air, free fluid or inflammatory stranding. No hernia, mass or bulky lymphadenopathy. Left adnexal lobulated cystic l esion measuring 5.7 x 3.0 cm, decreased in size since the prior exam The urinary bladder is without s ignificant finding. No suspicious bony findings. IMPRESSION: Mild right hydroureter. 5-6 mm right mid ureteral calculus. Nonobstructing 3 mm right re nal lower pole calculus as well. Interval decrease in size of left adnexal cystic lesion, without suspicious features. Colonic diverticulosis. The findings were communicated to Cherry Rivera on 09/30/2023 at 21:40 hours.
[2023-09-30] MEDS ORDERED: KETOROLAC 30 MG/ML INJ ONE (21:52)
[2023-09-30] MEDS ORDERED: TAMSULOSIN 0.4 MG SR CAP ONE (21:52)
[2023-09-30 21:53] LABS: Specific Gravity 1.023 (1.005-1.030); Sqamous Epithelial <5 /HPF (None Seen); Urine Bacteria None Seen /HPF (<20); Urine Bilirubin NEGATIVE (Negative); Urine Blood 3+ (OVER) (Negative); Urine Clarity Extremely Turbid (Clear); Urine Color Light-Orange (Yellow); Urine Culture Reflex Order NOT NEEDED; Urine Glucose NEGATIVE (Negative); Urine Ketones NEGATIVE (Negative); Urine Microscopic Reflex YN ORDER UMIC; Urine Mucus Slight /HPF (None Seen); Urine Nitrite NEGATIVE (Negative); Urine Protein TRACE (Negative); Urine RBC >50 /HPF (None Seen); Urine Urobilinogen Normal (Normal); Urine WBC <5 /HPF (<5)
--- NOTE | 2023-09-30 21:58 | EDPHYS ---
Physician Documentation [facility] Name: Marycarmen Benz Age: 58 yrs Sex: Female : 1965 Arrival Date: 09/30/2023 Time: 19:32 Bed 14 Private MD: ED Physician Stefano Nieto HPI: 09/29 21:15 This 58 yrs old Female presents to ER via Ambulatory with complaints of Abdominal Pain, kb Blood in urine. 21:15 Pt is a 58 year old female who presents with hematuria that started last night and abd kb pain that started today. Denies fever, nausea, vomiting and diarrhea. Denies dysuria, urinary frequency. . Historical: - Allergies: 19:41 malathion; mb9 - Home Meds: 19:41 tramadol 50 mg Oral tab 1 tab every 4 hours [Active]; mb9 - PMHx: 19:41 diabetes mellitus; Hypertensive disorder; Hypothyroidism; MVP; PCOS; RA; mb9 - PSHx: 19:41 section; foot surgery-right; Lumpectomy of breast; Total abdominal mb9 hysterectomy; - Immunization history:: Adult Immunizations up to date. - Infectious Disease History:: Denies. - Social history:: Smoking status: Patient denies any tobacco usage or history of. ROS: 21:15 Constitutional: As per HPI kb Exam: 21:15 Constitutional: This is a well developed, well nourished patient who is awake, alert, kb and in no acute distress. Head/Face: Normocephalic, atraumatic. ENT: Moist Mucous membranes Cardiovascular: Regular rate Respiratory: Respirations even and unlabored. No increased work of breathing. Talking in full sentences Skin: Warm, dry with normal turgor. Normal color. MS/ Extremity: Pulses equal, no cyanosis. Neurovascular intact. Full, normal range of motion. Neuro: Awake and alert, GCS 15, oriented to person, place, time, and situation. Moves all extremities. Normal gait. 21:15 Abdomen/GI: Inspection: abdomen appears normal, Bowel sounds: normal, Palpation: soft, in all quadrants, moderate abdominal tenderness, in the right lower quadrant and left lower quadrant, Vital Signs: 19:40 BP 156 / 81; Pulse 106; Resp 18; Temp 98.2; Pulse Ox 100% on R/A; Weight 97.52 kg; mb9 Height 5 ft. 9 in. ; Pain 5/10; 20:17 BP 147 / 62; Pulse 98; Resp 17; Pulse Ox 99% ; rv 22:10 BP 141 / 66; Pulse 89; Resp 18; Temp 98; Pulse Ox 99% on R/A; rv 19:40 Body Mass Index 31.75 (97.52 kg, 175.26 cm) mb9 19:40 Pain Scale: Adult mb9 Jair Coma Score: 20:17 Eye Response: spontaneous(4). Motor Response: obeys commands(6). Verbal Response: rv oriented(5). Total: 15. MDM: 19:36 Patient medically screened. kb 21:17 Differential diagnosis: non-specific abd pain, Ureterolithiasis, urinary tract kb infection. Data reviewed: vital signs, nurses notes. 21:40 Discussion of test interpretation with radiology: I had a discussion with radiology kb regarding a test interpretation. ct results discussed with Dr Lundberg. 21:55 Counseling: I had a detailed discussion with the patient and/or guardian regarding the kb historical points, exam findings, and any diagnostic results supporting the discharge/admit diagnosis, lab results, radiology results, the need for outpatient follow up, a urologist, to return to the emergency department if symptoms worsen or persist or if there are any questions or concerns that arise at home. ED course: Pt comfortable at this time. Agrees with outpatient follow up. 09/29 19:43 Order name: CBC with Diff; Complete Time: 20:23 kb 09/29 19:43 Order name: CMP; Complete Time: 20:38 kb 09/29 19:43 Order name: Lipase; Complete Time: 20:38 kb 09/29 19:43 Order name: Urinalysis w/ reflexes; Complete Time: 21:55 kb 09/29 19:43 Order name: CT Abd/Pelvis - IV Contrast Only; Complete Time: 21:48 kb 09/29 19:43 Order name: IV Saline Lock; Complete Time: 20:16 kb 09/29 19:43 Order name: Labs collected and sent; Complete Time: 20:16 kb Administered Medications: 20:16 Drug: NS 0.9% IV 1000 ml IV at 1 bolus Per protocol; 1000 mL bolus Route: IV; Rate: 1 rv bolus; Site: right antecubital; 21:41 Follow up: IV Status: Completed infusion; IV Intake: 1000ml rv 22:09 Not Given (Patient Refused): ondansetron 4 mg IVP once; over 2 minutes rv 22:09 Not Given (Patient Refused): morphineor iv 4 mg IVP once over 4 mins rv 22:09 Drug: Ketorolac IVP 15 mg IVP once Route: IVP; Site: right antecubital; rv 22:10 Follow up: Response: Medication administered at discharge. rv 22:09 Drug: Flomax PO 0.4 mg PO once Route: PO; rv 22:10 Follow up: Response: Medication administered at discharge. rv 22:09 Drug: Famotidine IVP 20 mg IVP once; dilute with 10 mL 0.9% NaCl; give over 2 minutes rv Route: IVP; Site: right antecubital; 22:10 Follow up: Response: Medication administered at discharge. rv Disposition Summary: 09/30/23 21:57 Discharge Ordered Notes: Location: Home kb Condition: Stable kb Diagnosis - Calculus of ureter kb - Other hydronephrosis kb Followup: kb - With: Emergency Department - When: As needed - Reason: Worsening of condition Followup: kb - With: Rajiv Jiang MD - When: 2 - 3 days - Reason: Recheck today's complaints Discharge Instructions: - Discharge Summary Sheet kb - Kidney Stones, [id number] kb - Dietary Guidelines to Help Prevent Kidney Stones kb Forms: - Medication Reconciliation Form kb - Thank You Letter kb - Antibiotic Education kb - Prescription Opioid Use kb - Patient Portal Instructions kb - Leadership Thank You Letter kb Prescriptions: - Flomax 0.4 mg Oral capsule - take 1 capsule ORAL route daily; 10 capsule; Refills: 0, Product Selection kb Permitted - Zofran 4 mg Oral tablet - take 1 tablet ORAL route every 6 hours As needed; 12 tablet; Refills: 0, kb Product Selection Permitted - Diclofenac Sodium 75 mg Oral tablet, delayed release (enteric coated) - take 1 tablet ORAL route 2 times per day As needed; 30 tablet; Refills: 0, kb Product Selection Permitted - Tramadol 50 mg Oral Tablet - take 1 tablet ORAL route every 8 hours as needed; 12 tablet; Refills: 0, kb Product Selection Permitted Signatures: Dispatcher [employer] Cherry Farah, URVASHI NEWTON-Alexander Brooke RN RN Татьяна Chow RN RN mb9 Corrections: (The following items were deleted from the chart) 19: 19:43 CBC+H.LAB.BRZ ordered. EDMS EDMS : 19:43 COMPREHENSIVE METABOLIC PANEL+C.LAB.BRZ ordered. EDMS EDMS : 19:43 LIPASE+C.LAB.BRZ ordered. EDMS EDMS : 19:43 Urinalysis+U.LAB.BRZ ordered. EDMS EDMS :44 19:44 Abdomen Pelvis W Con+CT.RAD.BRZ ordered. EDMS EDMS
--- NOTE | 2023-09-30 21:58 | ER ---
Nurse's Notes [facility] Name: Marycarmen Benz Age: 58 yrs Sex: Female : 1965 Arrival Date: 09/30/2023 Time: 19:32 Bed 14 Private MD: Diagnosis: Calculus of ureter;Other hydronephrosis Presentation: 09/29 19:40 Chief complaint: Patient states: "Last night, I noticed bright red blood in my urine mb9 and today I started having this squeezing pain in my lower stomach." Pt denies N/V/D. Coronavirus screen: Vaccine status: Patient reports receiving the 2nd dose of the covid vaccine. Ebola Screen: No symptoms or risks identified at this time. Initial Sepsis Screen: Does the patient meet any 2 criteria? No. Patient's initial sepsis screen is negative. Does the patient have a suspected source of infection? No. Patient's initial sepsis screen is negative. Risk Assessment: Do you want to hurt yourself or someone else? Patient reports no desire to harm self or others. Onset of symptoms was September 30, 2023. 19:40 Acuity: LILY 3 mb9 19:40 Method Of Arrival: Ambulatory mb9 Triage Assessment: 19:42 General: Appears in no apparent distress. Behavior is calm, cooperative. Pain: mb9 Complains of pain in abdomen. Neuro: [place] Agitation-Sedation Scale (RASS): 0 - Alert and Calm Level of Consciousness is awake, alert, obeys commands, Oriented to person, place, time, situation, Appropriate for age. Cardiovascular: Patient's skin is warm and dry. Respiratory: Airway is patent. GI: Abdomen is round non-distended, Patient currently denies diarrhea, nausea, vomiting. GI: Reports lower abdominal pain. : Reports blood in urine. Musculoskeletal: Range of motion: intact in all extremities. Historical: - Allergies: 19:41 malathion; mb9 - Home Meds: 19:41 tramadol 50 mg Oral tab 1 tab every 4 hours [Active]; mb9 - PMHx: 19:41 diabetes mellitus; Hypertensive disorder; Hypothyroidism; MVP; PCOS; RA; mb9 - PSHx: 19:41 section; foot surgery-right; Lumpectomy of breast; Total abdominal mb9 hysterectomy; - Immunization history:: Adult Immunizations up to date. - Infectious Disease History:: Denies. - Social history:: Smoking status: Patient denies any tobacco usage or history of. Screenin:16 [facility] ED Fall Risk Assessment (Adult) History of falling in the last 3 months, rv including since admission No falls in past 3 months (0 pts) Score/Fall Risk Level 0 - 2 = Low Risk Oriented to surroundings, Maintained a safe environment, Educated pt \\T\\ family on fall prevention, incl call for assistance when getting out of bed, Assessed \\T\\ reinforced patient's understanding of fall precautions. Abuse screen: Denies threats or abuse. Denies injuries from another. Nutritional screening: No deficits noted. Tuberculosis screening: No symptoms or risk factors identified. Assessment: 20:16 Reassessment: PT REFUSED THE PAIN MORPHINE AND ZOFRAN AT THIS TIME. DENIES NAUSEA, AND rv PAIN IS TOLERABLE. 22:10 GI: Bowel sounds present X 4 quads. Abd is soft and non tender X 4 quads. rv Vital Signs: 19:40 BP 156 / 81; Pulse 106; Resp 18; Temp 98.2; Pulse Ox 100% on R/A; Weight 97.52 kg; mb9 Height 5 ft. 9 in. ; Pain 5/10; 20:17 BP 147 / 62; Pulse 98; Resp 17; Pulse Ox 99% ; rv 22:10 BP 141 / 66; Pulse 89; Resp 18; Temp 98; Pulse Ox 99% on R/A; rv 19:40 Body Mass Index 31.75 (97.52 kg, 175.26 cm) mb9 19:40 Pain Scale: Adult mb9 [place] Coma Score: 20:17 Eye Response: spontaneous(4). Motor Response: obeys commands(6). Verbal Response: rv oriented(5). Total: 15. ED Course: 19:35 Patient arrived in ED. im 19:36 Cherry Rivera FNP-C is PHCP. kb 19:36 Stefano Nieto MD is Attending Physician. kb 19:40 Arm band placed on. mb9 19:41 Triage completed. mb9 19:44 Alexander Arndt RN is Primary Nurse. rv 20:16 Patient has correct armband on for positive identification. Client placed on continuous rv cardiac and pulse oximetry monitoring. NIBP monitoring applied. 20:16 No provider procedures requiring assistance completed. Initial lab(s) drawn, by me, rv sent to lab. Inserted saline lock: 20 gauge in right antecubital area, using aseptic technique. ,using aseptic technique. ULTRASOUND GUIDED. 20:18 CMP Sent. rv 20:18 Lipase Sent. rv 21:17 CT Abd/Pelvis - IV Contrast Only In Process Unspecified. EDMS 21:51 Urinalysis w/ reflexes Sent. cm10 21:56 Rajiv Jiang MD is Referral Physician. kb 22:11 IV discontinued, intact, bleeding controlled, No redness/swelling at site. Pressure rv dressing applied. Administered Medications: 20:16 Drug: NS 0.9% IV 1000 ml IV at 1 bolus Per protocol; 1000 mL bolus Route: IV; Rate: 1 rv bolus; Site: right antecubital; 21:41 Follow up: IV Status: Completed infusion; IV Intake: 1000ml rv 22:09 Not Given (Patient Refused): ondansetron 4 mg IVP once; over 2 minutes rv 22:09 Not Given (Patient Refused): morphineor iv 4 mg IVP once over 4 mins rv 22:09 Drug: Ketorolac IVP 15 mg IVP once Route: IVP; Site: right antecubital; rv 22:10 Follow up: Response: Medication administered at discharge. rv 22:09 Drug: Flomax PO 0.4 mg PO once Route: PO; rv 22:10 Follow up: Response: Medication administered at discharge. rv 22:09 Drug: Famotidine IVP 20 mg IVP once; dilute with 10 mL 0.9% NaCl; give over 2 minutes rv Route: IVP; Site: right antecubital; 22:10 Follow up: Response: Medication administered at discharge. rv Medication: 20:16 VIS not applicable for this client. rv Intake: 21:41 IV: 1000ml; Total: 1000ml. rv Outcome: 21:57 Discharge ordered by MD. kb 22:10 Discharged to home ambulatory, rv 22:10 Condition: good 22:10 Discharge instructions given to patient, Instructed on discharge instructions, follow up and referral plans. Demonstrated understanding of instructions, follow-up care, medications, Prescriptions given X 4, 22:11 Patient left the ED. rv Signatures: Dispatcher [employer] EDMS Cherry Rivera, MARTINAC AMAN-Alexander Brooke RN RN rv Татьяна Olmstead RN RN mb9 Jay, Deonna Stoner, Rayne, RN RN cm10
[2023-09-30] MEDS ORDERED: FAMOTIDINE 20 MG/2 ML VIAL IV ONE (22:00)
[2023-09-30 22:43] VITALS: BP 141/66; TEMP 98; O2SAT 99
== END 2023-09-30 22:11 | disposition home or self-care (01) ==
LOC: ER 19:32
DX: N20.1 Calculus of ureter (principal); N13.39 Other hydronephrosis; Z88.8 Allergy status to other drugs, medicaments and biological substances
CPT/HCPCS: 85025; 81001; 36415; 83690; 80053; 74177; Q9967; J7030; J2405